=== PATIENT | male | born 1950 | race Caucasian/White ===

== ENCOUNTER 2016-12-09 23:57 | Inpatient (IN) | payer OTHER ==
[~2016-12-09] VITALS: Ht 172.7 cm; Wt 135.0 kg
[~2016-12-09 23:57] MED LIST: ALLOPURINOL100 MG PO; ANDROGEL1% PO; ASPIR-TRIN325 MG PO; CLINDAMYCIN HC300 MG PO; ELIQUIS5 MG PO; HECTOROL0.5 MCG; LAC PO; LASIX80 MG PO; LEVOFLOXACIN500 M1 PO; LEVOTHROID0.025 MG PO; NATURAL IRON65 MG PO; OMEPRAZOLE DR20 M1 PO; OXYC PO; PLA75 PO; POTASSIUM CHLO10 MEQ PO; PRAVACHOL10 MG PO; SODIUM BICARBO650 MG; VITAMIN-D1000 IU PO; [UNRECOGNIZED DRUG - OTHER]
[2016-12-10] VITALS (9 sets, daily range): BP systolic 76–132; BP diastolic 31–91; Ht 172.7 cm; Wt 135.0 kg
[2016-12-10 01:18] LABS: BASOPHIL % 0.3 % (0-2); PLATELET COUNT 145 x10^3mcL (130-400)
[2016-12-10 01:22] LABS: BILIRUBIN TOTAL 0.51 mg/dL (0.20-1.00); CALCIUM 8.3 mg/dL (8.5-10.1); CARBON DIOXIDE 26.5 mmol/L (21-32); CREATININE SERUM 2.9 mg/dL (0.7-1.3); TOTAL PROTEIN, SERUM 7.2 g/dL (6.4-8.2)
[2016-12-10 01:26] LABS: ALBUMIN 1.9 g/dL (3.4-5.0)
[2016-12-10 01:29] LABS: RED CELL DISTRIBUTION WIDTH 19.1 % (11.5-14.5)
[2016-12-10 01:59] LABS: CHOLESTEROL/HDL RATIO 2.6; MAGNESIUM 2.1 mg/dL (1.8-2.4)
[2016-12-10 02:36] LABS: FREE THYROXINE INDEX 1.6 ug/dL (1.4-4.5); T4(THYROXINE) 4.1 ug/dL (4.7-13.3)
[2016-12-10 05:41] LABS: microscopic required? YES; urine erythrocyte 3+ (NEGATIVE)
[2016-12-10 05:59] LABS: AMPHETAMINE QUAL UR NONE DETECTED (NEG <=1000)
[2016-12-10 07:15] LABS: CALCIUM 8.5 mg/dL (8.5-10.1); CARBON DIOXIDE 25.3 mmol/L (21-32); CREATININE SERUM 2.9 mg/dL (0.7-1.3); PHOSPHOROUS 4.6 mg/dL (2.5-4.9)
[2016-12-10 07:36] LABS: ALBUMIN 1.9 g/dL (3.4-5.0); POTASSIUM SERUM 5.8 mmol/L (3.5-5.1)
[2016-12-10 11:49] LABS: T3 TOTAL 0.39 ng/mL
== END 2016-12-10 18:10 | disposition expired | DRG 871 ==
LOC: ED 23:57 → IC 12-10 00:51
PROVIDERS: Emergency Medicine; ADMIT Family Medicine
PROC: 5A1935Z Respiratory Ventilation, Less than 24 Consecutive Hours (ICD-10-PCS; principal; 2016-12-10)
PROC: 05HN33Z Insertion of Infusion Device into Left Internal Jugular Vein, Percutaneous Approach (ICD-10-PCS; 2016-12-10)
PROC: B544ZZA Ultrasonography of Left Jugular Veins, Guidance (ICD-10-PCS; 2016-12-10)
PROC: 0BH17EZ Insertion of Endotracheal Airway into Trachea, Via Natural or Artificial Opening (ICD-10-PCS; 2016-12-10)
DX: A41.9 Sepsis, unspecified organism (principal); J69.0 Pneumonitis due to inhalation of food and vomit; J96.01 Acute respiratory failure with hypoxia; I50.43 Acute on chronic combined systolic (congestive) and diastolic (congestive) heart failure; N18.6 End stage renal disease; R65.21 Severe sepsis with septic shock; N17.0 Acute kidney failure with tubular necrosis; E43 Unspecified severe protein-calorie malnutrition; I13.2 Hypertensive heart and chronic kidney disease with heart failure and with stage 5 chronic kidney disease, or end stage renal disease; Z68.41 Body mass index [BMI] 40.0-44.9, adult; E87.5 Hyperkalemia; R31.9 Hematuria, unspecified; E11.65 Type 2 diabetes mellitus with hyperglycemia; E11.40 Type 2 diabetes mellitus with diabetic neuropathy, unspecified; I25.10 Atherosclerotic heart disease of native coronary artery without angina pectoris; E03.9 Hypothyroidism, unspecified; Z79.4 Long term (current) use of insulin; Z89.512 Acquired absence of left leg below knee; Z87.891 Personal history of nicotine dependence; Z95.5 Presence of coronary angioplasty implant and graft; Z66 Do not resuscitate; Z51.5 Encounter for palliative care
CPT/HCPCS: 36556; 36600; 83880; 84439; A4628; J1642; J1815; J1940; J2060; J2270; J2543; J2704; J3490; J7030; J7042; Q0092